=== PATIENT | female | born 1975 | race Caucasian/White ===

== ENCOUNTER 2020-06-11 20:04 | Emergency (ER) | payer OTHER ==
[2020-06-11] MEDS ORDERED: ONDANSETRON 4 MG/2 ML VIAL ONE (21:23)
[2020-06-11] MEDS ORDERED: NA CHLORIDE 0.9% 1,000 ML ONE (21:23)
[2020-06-11] MEDS ORDERED: FAMOTIDINE 20 MG/2 ML VIAL IV ONE (21:23)
[2020-06-11] MEDS ORDERED: CEFTRIAXONE/SWI 1gm 1 GM/10 ML SYR ONE (21:23)
[2020-06-11 21:44] LABS: Absolute Lymphocytes (CBC) 0.8 K/uL (0.7-4.9); Basophils % 0.3 % (0-1.3); Lymphocytes % 7.2 % (15.3-44.8); RBC Red Blood Cell Count 4.86 M/uL (3.86-4.86)
[2020-06-11 22:03] LABS: ALT/SGPT 18 U/L (12-78); AST/SGOT 8 U/L (15-37); Albumin 3.8 g/dL (3.4-5.0); Alkaline Phosphatase 37 U/L (45-117); BUN Blood Urea Nitrogen 14 mg/dL (7-18); Bicarbonate 26 mmol/L (21-32); Bilirubin Direct < 0.1 mg/dL (0-0.2); Bilirubin Total 0.3 mg/dL (0.2-1.0); Glucose Level 116 mg/dL (74-106); Lipase 110 U/L (73-393); Magnesium 2.2 mg/dL (1.8-2.4); NT PRO-BNP 37 pg/mL (<125); Potassium 3.3 mmol/L (3.5-5.1); Protein, Total 7.7 g/dL (6.4-8.2); Sodium Level 139 mmol/L (136-145); Troponin (Emerg Dept Use Only) < 0.02 ng/mL (0.0-0.045)
[2020-06-11 22:04] LABS: Blood Morphology Comment NOT SEEN (NOT SEEN); Platelet Estimate ADEQ; White Blood Cell Scan OK (OK)
--- NOTE | 2020-06-11 22:05 | RAD REPORT ---
EXAM DESCRIPTION: RAD - Chest Single View - 06/11/2020 9:21 pm CLINICAL HISTORY: DYSPNEA Chest pain. COMPARISON: No comparisons FINDINGS: Portable technique limits examination quality. The lungs are grossly clear. The heart is normal in size. No displaced fractures. IMPRESSION: No acute intrathoracic process suspected.
[2020-06-11 22:07] LABS: Urine Blood 2+ (NEG); Urine Glucose NEGATIVE (NEG); Urine Protein NEGATIVE (NEG); Urine Specific Gravity 1.015 (1.005-1.030)
[2020-06-11] MEDS ORDERED: LORazepam 2 MG/ML VIAL ONE ×2 (23:14→23:17)
[2020-06-11] MEDS ORDERED: ASPIRIN 81 MG CHEWABLE TABLET ONE (23:35)
[2020-06-11] MEDS ORDERED: AZITHROMYCIN 250 MG TAB ONE (23:36)
[2020-06-11] MEDS ORDERED: POTASSIUM 25 MEQ EFFERV TAB ONE (23:36)
[2020-06-11] MEDS ORDERED: dexAMETHasone 10 MG/ML VIAL ONE (23:36)
--- NOTE | 2020-06-11 23:57 | ER ---
Nurse's Notes [facility] Name: Christine Loving Age: 45 yrs Sex: Female : 1975 Arrival Date: 06/11/2020 Time: 20:06 Bed 15 Private MD: Diagnosis: Dyspnea;Acute upper respiratory infection, unspecified;Hypokalemia Presentation: 06/11 20:11 Chief complaint: Patient states: SOB, fever, chills, leg pain, and weakness since 1630 ll1 today. Fever 99.8 at home. No appetite. Coronavirus screen: Client denies travel out of the [place] in the last 14 days. fatigue, fever, nausea, Client presents with at least one sign or symptom that may indicate coronavirus-19. Standard/surgical mask placed on the client. Ebola Screen: Patient denies travel to an Ebola-affected area in the 21 days before illness onset. Initial Sepsis Screen: Does the patient meet any 2 criteria? HR > 90 bpm. No. Patient's initial sepsis screen is negative. Does the patient have a suspected source of infection? No. Patient's initial sepsis screen is negative. Risk Assessment: Do you want to hurt yourself or someone else? Patient reports no desire to harm self or others. Onset of symptoms was June 11, 2020. 20:11 Method Of Arrival: Ambulatory ll1 20:11 Acuity: JB 3 ll1 Historical: - Allergies: 20:13 No Known Allergies; ll1 - PMHx: 20:13 Hypertension; borderline diabetes; ll1 - PSHx: 20:13 None; ll1 - Immunization history:: Flu vaccine is not up to date. - Social history:: Smoking status: Patient reports the use of cigarette tobacco products, 2 cigs/day. - Family history:: not pertinent. Screenin:35 Abuse screen: Denies threats or abuse. Nutritional screening: No deficits noted. jb4 Tuberculosis screening: No symptoms or risk factors identified. Fall Risk None identified. Assessment: 20:35 General: Appears in no apparent distress. comfortable, Behavior is calm, cooperative. jb4 Pain: Denies pain. Neuro: Level of Consciousness is awake, alert, obeys commands, Oriented to person, place, time, situation. Cardiovascular: Patient's skin is warm and dry. Respiratory: Airway is patent Respiratory effort is even, unlabored, Respiratory pattern is regular, symmetrical, Breath sounds are clear bilaterally. GI: Abdomen is non-distended, obese, Patient currently denies abdominal pain, nausea. : No signs and/or symptoms were reported regarding the genitourinary system. EENT: No signs and/or symptoms were reported regarding the EENT system. Derm: Skin is intact, Skin is pink, warm \T\ dry. Musculoskeletal: Circulation, motion, and sensation intact. Range of motion: intact in all extremities. 21:30 Reassessment: Patient appears in no apparent distress at this time. Patient and/or jb4 family updated on plan of care and expected duration. Pain level reassessed. Patient is alert, oriented x 3, equal unlabored respirations, skin warm/dry/pink. 22:30 Reassessment: Patient appears in no apparent distress at this time. Patient and/or jb4 family updated on plan of care and expected duration. Pain level reassessed. Patient is alert, oriented x 3, equal unlabored respirations, skin warm/dry/pink. 23:09 Reassessment: pt appears anxious on the CT scanner stretcher, pt states she has not had sg a CT scan before and is claustrophobic and anxious about this. pt reassured, that the scanner is safe and the procedure is very fast. Primary nurse with pt in CT at this time, notified, and pt has been medicated as ordered. 06/12 00:00 Reassessment: Patient appears in no apparent distress at this time. Patient and/or jb4 family updated on plan of care and expected duration. Pain level reassessed. Patient is alert, oriented x 3, equal unlabored respirations, skin warm/dry/pink. Vital Signs: 06/11 20:11 BP 121 / 78; Pulse 100; Resp 18; Temp 98.9; Pulse Ox 100% ; Weight 82.55 kg; Height 5 ll1 ft. 3 in. (160.02 cm); Pain 0/10; 21:30 BP 136 / 103; Pulse 81; Resp 16; Pulse Ox 100% on R/A; jb4 22:30 BP 135 / 72; Pulse 84; Resp 16; Pulse Ox 100% on R/A; jb4 23:30 BP 136 / 75; Pulse 82; Resp 16; Pulse Ox 99% ; jb4 20:11 Body Mass Index 32.24 (82.55 kg, 160.02 cm) ll1 ED Course: 20:06 Patient arrived in ED. cl3 20:13 Triage completed. ll1 20:14 Arm band placed on Patient placed in an exam room, on a stretcher. ll1 20:25 Jean Chavez MD is Attending Physician. nicolette 20:35 Patient has correct armband on for positive identification. Call light in reach. Side jb4 rails up X 1. Pulse ox on. NIBP on. 21:04 Dayday Maria, RN is Primary Nurse. jb4 21:08 Urine collected: clean catch specimen, clear, debbie colored. jp3 21:10 Patient maintains SpO2 saturation greater than 95% on room air. jp3 21:10 EKG done, by ED staff, reviewed by Jean Chavez MD. jp3 21:12 X-ray(s) taken. jp3 21:14 First set of blood cultures drawn by me. Inserted saline lock: 20 gauge in left jp3 antecubital area, using aseptic technique. Blood collected. 21:16 Flu and/or RSV swab sent to lab. Pt swabbed for COVID-19. jp3 21:21 XRAY Chest (1 view) In Process Unspecified. EDMS 21:24 Initial lab(s) drawn, by me, sent to lab. Second set of blood cultures drawn by me. jp3 22:10 US Extremity Venous W Compression Patel In Process Unspecified. EDMS 23:32 CT Chest For PE Angio In Process Unspecified. EDMS 11 00:20 No provider procedures requiring assistance completed. IV discontinued, intact, jb4 bleeding controlled, No redness/swelling at site. Pressure dressing applied. Administered Medications: 06/11 21:30 Drug: NS 0.9% 1000 ml Route: IV; Rate: 1 bolus; Site: left antecubital; rr5 21:33 Drug: Pepcid 20 mg Route: IVP; Site: left antecubital; rr5 21:35 Drug: Rocephin 1 grams Route: IV; Rate: per protocol; Site: left antecubital; rr5 21:39 Not Given (Patient Refused): Zofran (Ondansetron) 4 mg IVP once; over 2 minutes jb4 22:52 Drug: Ativan 1 mg Route: IVP; Site: left antecubital; sg 23:26 Follow up: Response: No adverse reaction; Marked relief of symptoms jb4 23:32 Drug: Zithromax 500 mg Route: PO; jb4 06/12 00:00 Follow up: Response: No adverse reaction jb4 06/11 23:32 Drug: Potassium Effervescent Tablet 25 mEq Route: PO; jb4 06/12 00:00 Follow up: Response: No adverse reaction jb4 06/11 23:32 Drug: Aspirin 162 mg Route: PO; jb4 06/12 00:00 Follow up: Response: No adverse reaction jb4 06/11 23:32 Drug: Decadron - Dexamethasone 6 mg Route: IVP; Site: left antecubital; jb4 06/12 00:00 Follow up: Response: No adverse reaction jb4 Outcome: 06/11 23:56 Discharge ordered by MD. will 06/12 00:20 Discharged to home ambulatory. jb4 Condition: stable Discharge instructions given to patient, Instructed on discharge instructions, follow up and referral plans. medication usage, Demonstrated understanding of instructions, follow-up care, medications, Prescriptions given X 4. 00:23 Patient left the ED. jb4 Addendum: 06/14/2020 07:33 Addendum: COVID-19 Result: Negative result given to RN to notify pt. Attempted to s s contact pt regarding negative COVID-19 swab results. Left voice mail. Signatures: Dispatcher [employer] Yang Collazo, RN Jean Simmons MD MD cha Smirch, Shelby, RN RN Dayday Ochoa RN RN jb4 Mike Tabor jp3 Eulogio Huizar RN RN rr5 Otis Estevez3 Estrella Estevez RN RN ll1
--- NOTE | 2020-06-11 23:57 | EDPHYS ---
Physician Documentation [facility] Name: Christine Loving Age: 45 yrs Sex: Female : 1975 Arrival Date: 06/11/2020 Time: 20:06 Bed 15 Private MD: ED Physician Jean Chavez HPI: 06/11 21:41 This 45 yrs old Female presents to ER via Ambulatory with complaints of nicolette Nausea, Breathing Difficulty, Leg Pain. 21:41 The patient presents to the emergency department with nausea. nicolette Historical: - Allergies: 20:13 No Known Allergies; ll1 - PMHx: 20:13 Hypertension; borderline diabetes; ll1 - PSHx: 20:13 None; ll1 - Immunization history:: Flu vaccine is not up to date. - Social history:: Smoking status: Patient reports the use of cigarette tobacco products, 2 cigs/day. - Family history:: not pertinent. ROS: 21:42 Constitutional: Negative for fever, chills, and weight loss, Eyes: Negative for injury, nicolette pain, redness, and discharge, ENT: Negative for injury, pain, and discharge, Neck: Negative for injury, pain, and swelling, Cardiovascular: Negative for chest pain, palpitations, and edema, Abdomen/GI: Negative for abdominal pain, nausea, vomiting, diarrhea, and constipation, Back: Negative for injury and pain, : Negative for injury, bleeding, discharge, and swelling, Skin: Negative for injury, rash, and discoloration, Neuro: Negative for headache, weakness, numbness, tingling, and seizure, Psych: Negative for depression, anxiety, suicide ideation, homicidal ideation, and hallucinations, Allergy/Immunology: Negative for hives, rash, and allergies, Endocrine: Negative for neck swelling, polydipsia, polyuria, polyphagia, and marked weight changes, Hematologic/Lymphatic: Negative for swollen nodes, abnormal bleeding, and unusual bruising. 21:42 Respiratory: Positive for shortness of breath. 21:42 MS/extremity: Positive for pain. Exam: 21:42 Constitutional: This is a well developed, well nourished patient who is awake, alert, nicolette and in no acute distress. Head/Face: Normocephalic, atraumatic. Eyes: Pupils equal round and reactive to light, extra-ocular motions intact. Lids and lashes normal. Conjunctiva and sclera are non-icteric and not injected. Cornea within normal limits. Periorbital areas with no swelling, redness, or edema. ENT: Nares patent. No nasal discharge, no septal abnormalities noted. Tympanic membranes are normal and external auditory canals are clear. Oropharynx with no redness, swelling, or masses, exudates, or evidence of obstruction, uvula midline. Mucous membranes moist. Neck: Trachea midline, no thyromegaly or masses palpated, and no cervical lymphadenopathy. Supple, full range of motion without nuchal rigidity, or vertebral point tenderness. No Meningismus. Chest/axilla: Normal chest wall appearance and motion. Nontender with no deformity. No lesions are appreciated. Cardiovascular: Regular rate and rhythm with a normal S1 and S2. No gallops, murmurs, or rubs. Normal PMI, no JVD. No pulse deficits. Respiratory: Lungs have equal breath sounds bilaterally, clear to auscultation and percussion. No rales, rhonchi or wheezes noted. No increased work of breathing, no retractions or nasal flaring. Abdomen/GI: Soft, non-tender, with normal bowel sounds. No distension or tympany. No guarding or rebound. No evidence of tenderness throughout. Back: No spinal tenderness. No costovertebral tenderness. Full range of motion. Skin: Warm, dry with normal turgor. Normal color with no rashes, no lesions, and no evidence of cellulitis. Neuro: Awake and alert, GCS 15, oriented to person, place, time, and situation. Cranial nerves II-XII grossly intact. Motor strength 5/5 in all extremities. Sensory grossly intact. Cerebellar exam normal. Normal gait. Psych: Awake, alert, with orientation to person, place and time. Behavior, mood, and affect are within normal limits. 21:42 Musculoskeletal/extremity: ROM: intact in all extremities, full active range of motion, full passive range of motion, Circulation is intact in all extremities. Sensation intact. Compartment Syndrome exam of affected extremity: is normal. Joints: All joints appear normal with full range of motion. DVT Exam: no swelling, negative Homans' sign noted on exam, no appreciated bluish discoloration, no erythema, no increased warmth, pain, tenderness. 23:57 ECG was reviewed by the Attending Physician. [facility] Vital Signs: 20:11 BP 121 / 78; Pulse 100; Resp 18; Temp 98.9; Pulse Ox 100% ; Weight 82.55 kg; Height 5 ll1 ft. 3 in. (160.02 cm); Pain 0/10; 21:30 BP 136 / 103; Pulse 81; Resp 16; Pulse Ox 100% on R/A; jb4 22:30 BP 135 / 72; Pulse 84; Resp 16; Pulse Ox 100% on R/A; jb4 23:30 BP 136 / 75; Pulse 82; Resp 16; Pulse Ox 99% ; jb4 20:11 Body Mass Index 32.24 (82.55 kg, 160.02 cm) ll1 MDM: 20:25 Patient medically screened. nicolette 21:45 Antibiotic administration: Rocephin and Zithromax given, r. Differential diagnosis: nicolette Bronchitis pancreatitis, pneumonia, pulmonary edema, Pulmonary Embolism Unstable Angina. The patient's Wells Deep Vein Thrombosis Score was calculated as follows: Total Score: 0-2 Pts- Low Risk. The patient's pulmonary embolism risk score was calculated as follows: Total Score: 0-2 points. This patient was found to be at low risk for a pulmonary embolism by using the Well's assessment criteria. Immunization status:. Data reviewed: vital signs, nurses notes, lab test result(s), EKG, radiologic studies, CT scan, plain films. Data interpreted: radiation monitor: rate is 100 beats/min, rhythm is regular, Pulse oximetry: is not applicable for this patient encounter. on room air is 100 %. Test interpretation: by ED physician or midlevel provider: ECG, plain radiologic studies. Counseling: I had a detailed discussion with the patient and/or guardian regarding: the historical points, exam findings, and any diagnostic results supporting the discharge/admit diagnosis, lab results, radiology results, the need for outpatient follow up. 06/11 20:49 Order name: Basic Metabolic Panel; Complete Time: 22:59 [facility] 06/11 20:49 Order name: CBC with Diff; Complete Time: 22:59 [facility] 06/11 20:49 Order name: LFT's; Complete Time: 22:59 [facility] 06/11 20:49 Order name: Magnesium; Complete Time: 22:59 [facility] 06/11 20:49 Order name: NT PRO-BNP; Complete Time: 22:59 [facility] 06/11 20:49 Order name: Troponin (emerg Dept Use Only); Complete Time: 22:59 [facility] 06/11 20:49 Order name: Blood Culture Adult (2) [facility] 06/11 20:49 Order name: Lipase; Complete Time: 22:59 [facility] 06/11 20:49 Order name: Urine Culture [facility] 06/11 20:49 Order name: COVID-19 [facility] 06/11 20:49 Order name: Flu [facility] 06/11 20:49 Order name: Lactate; Complete Time: 22:59 [facility] 06/11 21:10 Order name: Urine Dipstick--Ancillary (enter results); Complete Time: 22:59 nm 06/11 21:10 Order name: Urine --Ancillary (enter results); Complete Time: 22:59 nm 06/11 20:49 Order name: XRAY Chest (1 view); Complete Time: 22:59 [facility] 06/11 20:49 Order name: EKG; Complete Time: 20:50 [facility] 06/11 20:49 Order name: Cardiac monitoring; Complete Time: 21:01 [facility] 06/11 20:49 Order name: EKG - Nurse/Tech; Complete Time: 21:01 [facility] 06/11 21:41 Order name: US Extremity Venous W Compression Patel [facility] 06/11 21:41 Order name: CT Chest For PE Angio [facility] 06/11 22:04 Order name: CBC Smear Scan; Complete Time: 22:59 [facility] 06/11 20:49 Order name: IV Saline Lock; Complete Time: 21:34 [facility] 06/11 20:49 Order name: Labs collected and sent; Complete Time: 21:34 [facility] 06/11 20:49 Order name: O2 Per Protocol; Complete Time: 21:01 [facility] 06/11 20:49 Order name: O2 Sat Monitoring; Complete Time: 21:01 [facility] 06/11 20:49 Order name: Urine Dipstick-Ancillary (obtain specimen); Complete Time: 21:01 [facility] EC:57 Rate is 91 beats/min. Rhythm is regular. QRS [place] is Normal. [place] interval is normal. QRS nicolette interval is normal. QT interval is prolonged at 464 msec. No Q waves. T waves are Normal. No ST changes noted. Clinical impression: NSR w/ Non-specific ST/T Changes and No evidence of ischemia. Interpreted by me. Reviewed by me. Administered Medications: 21:30 Drug: NS 0.9% 1000 ml Route: IV; Rate: 1 bolus; Site: left antecubital; rr5 21:33 Drug: Pepcid 20 mg Route: IVP; Site: left antecubital; rr5 21:35 Drug: Rocephin 1 grams Route: IV; Rate: per protocol; Site: left antecubital; rr5 21:39 Not Given (Patient Refused): Zofran (Ondansetron) 4 mg IVP once; over 2 minutes jb4 22:52 Drug: Ativan 1 mg Route: IVP; Site: left antecubital; sg 23:26 Follow up: Response: No adverse reaction; Marked relief of symptoms jb 23:32 Drug: Zithromax 500 mg Route: PO; jb4 06/12 00:00 Follow up: Response: No adverse reaction [facility] 06/11 23:32 Drug: Potassium Effervescent Tablet 25 mEq Route: PO; jb4 06/12 00:00 Follow up: Response: No adverse reaction [facility] 06/11 23:32 Drug: Aspirin 162 mg Route: PO; 4 06/12 00:00 Follow up: Response: No adverse reaction [facility] 06/11 23:32 Drug: Decadron - Dexamethasone 6 mg Route: IVP; Site: left antecubital; jb4 06/12 00:00 Follow up: Response: No adverse reaction [facility] Disposition: 06/11/20 23:56 Discharged to Home. Impression: Dyspnea, Acute upper respiratory infection, unspecified, Hypokalemia. - Condition is Stable. - Discharge Instructions: Potassium Content of Foods, Shortness of Breath, Upper Respiratory Infection, Adult, Cool Mist Vaporizer, Shortness of Breath, [id number], Cough, Adult, [id number], Aspirin and Your Heart, Hypokalemia, COVID-19. - Prescriptions for Pepcid 20 mg Oral Tablet - take 1 tablet by ORAL route every 12 hours for 10 days; 20 tablet. Medrol (Madhav) 4 mg Oral Tablets, Dose Pack - take 1 tablet by ORAL route as directed - follow package instructions; 1 packet. Albuterol Sulfate 90 mcg/actuation - inhale 1-2 puff by INHALATION route every 4-6 hours; 1 Inhaler. Zithromax 500 mg Oral Tablet - take 1 tablet by ORAL route once daily for 4 days; 4 tablet. - Medication Reconciliation Form, Thank You Letter, Antibiotic Education, Prescription Opioid Use form. - Follow up: Private Physician; When: 2 - 3 days; Reason: Recheck today's complaints, Continuance of care, Re-evaluation by your physician. - Problem is new. - Symptoms have improved. Signatures: Dispatcher [employer] EDMS Yang Holley RN Jean Simmons MD MD cha Bryson, James, RN RN jb4 Eulogio Huizar RN RN rr5 Estrella Estevez RN RN ll1 Corrections: (The following items were deleted from the chart) 00:23 06/11 23:56 06/11/2020 23:56 Discharged to Home. Impression: Dyspnea; Acute upper jb4 respiratory infection, unspecified; Hypokalemia. Condition is Stable. Discharge Instructions: Potassium Content of Foods, Shortness of Breath, Upper Respiratory Infection, Adult, Cool Mist Vaporizer, Shortness of Breath, [id number], Cough, Adult, [id number]-[id number], Hypokalemia, COVID-19, Aspirin and Your Heart. Prescriptions for Pepcid 20 mg Oral Tablet - take 1 tablet by ORAL route every 12 hours for 10 days; 20 tablet, Medrol (Madhav) 4 mg Oral Tablets, Dose Pack - take 1 tablet by ORAL route as directed - follow package instructions; 1 packet, Albuterol Sulfate 90 mcg/actuation - inhale 1-2 puff by INHALATION route every 4-6 hours; 1 Inhaler, Zithromax 500 mg Oral Tablet - take 1 tablet by ORAL route once daily for 4 days; 4 tablet. and Forms are Medication Reconciliation Form, Thank You Letter, Antibiotic Education, Prescription Opioid Use. Follow up: Private Physician; When: 2 - 3 days; Reason: Recheck today's complaints, Continuance of care, Re-evaluation by your physician. Problem is new. Symptoms have improved. nicolette
[2020-06-12 09:04] VITALS: TEMP 98.9; O2SAT 100
[2020-06-12 09:07] VITALS: BP 135/72
--- NOTE | 2020-06-12 10:27 | RAD REPORT ---
EXAM DESCRIPTION: CT - Chest For Pe Angio - 06/12/2020 6:57 am CLINICAL HISTORY: Shortness of breath. COMPARISON: None. TECHNIQUE: CT angiogram of the chest with IV contrast. 3-D MIP images were obtained in coronal and s agittal reconstructions. This exam was performed according to our departmental dose-optimization prog alex, which includes automated exposure control, adjustment of the mA and/or kV according to patient s ize and/or use of iterative reconstruction technique. FINDINGS: No filling defects are seen in the pulmonary trunk or the left and right main pulmonary ar valerie. There is limited evaluation of the segmental branches due to motion artifact. The thyroid gland is normal. No mediastinal or hilar adenopathy. The heart size is normal without per icardial effusion. The thoracic aorta is normal caliber. No consolidation, pleural effusion, or pneum othorax is identified. The visualized upper abdomen demonstrates no acute findings. No acute osseous findings are seen. IMPRESSION: 1. No acute pulmonary embolism. 2. Clear lungs. Electronically signed by: Maxx Foster MD 06/11/2020 11:45 PM [employer] Due to temporary technical issues with the PACS/Fluency reporting system, reports are being signed by the in house radiologist without review as a courtesy to ensure prompt reporting. The interpreting r adiologist is fully responsible for the content of the report.
--- NOTE | 2020-06-12 10:40 | RAD REPORT ---
EXAM DESCRIPTION: US - Extrem Venous W Compress Patel - 06/11/2020 10:10 pm CLINICAL HISTORY: Pain;Swelling, both legs Preliminary findings provided at the time of the study. COMPARISON: None. TECHNIQUE: Real-time sonographic evaluation of the bilateral lower extremity common femoral, superfi cial femoral, popliteal and posterior tibial veins was performed. FINDINGS: Normal compressibility, flow augmentation, phasic flow and spontaneous flow are identified in the left and right lower extremity common femoral, superficial femoral, popliteal and posterior t ibial veins. No intraluminal filling defects seen. IMPRESSION: No DVT in either lower extremity.
--- NOTE | 2020-06-13 06:08 | EKG ---
Test Date: 2020-06-11 Test Time: 20:55:28 Personal Financial Advisor: DEVIN MEASUREMENT RESULTS: Intervals: Rate: 91 IL: 166 QRSD: 88 QT: 378 QTc: 464 Gratz: P: 46 IL: 166 QRS: -3 T: 12 INTERPRETIVE STATEMENTS: Normal sinus rhythm Prolonged QT Abnormal ECG Compared to ECG 04/24/2006 12:23:19 Prolonged QT interval now present T-wave abnormality no longer present Electronically Signed On 06-13-20 06:03:26 SPANISH SPEAKING NANNY by Amador Montgomery
== END 2020-06-12 00:23 | disposition home or self-care (01) ==
LOC: ER 20:04
DX: J06.9 Acute upper respiratory infection, unspecified (principal); E87.6 Hypokalemia; Z20.828 Contact with and (suspected) exposure to other viral communicable diseases; I10 Essential (primary) hypertension; F17.210 Nicotine dependence, cigarettes, uncomplicated
CPT/HCPCS: 93005; 87040 ×2; 87088; 85025; 87086; 80048; 36415; 83735; 81025; 80076; 83605; 81003; 84484; 83690; 83880; 87804 ×2; 71275; 71045; 93970; 96375; 96374; 99285; U0002; Q9967; J1100; J0696; J7030; J2405

== ENCOUNTER 2021-12-19 16:07 | Emergency (ER) | payer OTHER ==
--- OUTSIDE RECORDS SUMMARY | 2021-12-19 16:09 | XMS REPORT | Continuity of Care Document ---
:1975 Author Organization [facility] t Address [address] [place] [address] Care Team Providers Name Role Phone Sophie Shea Primary Care Physician Elia Perdomo MD Attending Clinician Payers Payer Name Policy Type Policy Number Effective Date Expiration Date S ource Problems Condition Condition Condition Status Onset Resolution Last Treating Co mments Source Name Details Category Date Date Treatment Clinician Date Perimenopa Perimenopa Disease Active U nivers usal usal 4-08 ity of symptom symptom 00:00: [address] Menorrhagi Menorrhagi Disease Active U nivers a with a with 4-08 ity of irregular irregular 00:00: [place] s cycle cycle 00 [address] Enlarged Enlarged Disease Active Unive rs uterus uterus 7-18 ity of 00:00: [place] [facility] Generalize Generalize Disease Active U nivers d anxiety d anxiety 7-18 ity of disorder disorder 00:00: [facility] Depression Depression Disease Active U nivers 7-18 ity of 00:00: [place] [facility] Elevated Elevated Disease Active Unive rs cholestero cholestero 7-18 it y of l l 00:00: [address] Type 2 Type 2 Disease Active Overview: Univer s diabetes diabetes 7-18 Formattin ity of mellitus mellitus 00:00: g of this [place] as without without 00 note Medical complicati complicati might be Branch ons ons different from the original. ICD10 Diagnosis Term Composition [employer] Intramural Intramural Disease Active Overview : Univers leiomyoma leiomyoma -18 Formattin i ty of of uterus of uterus 00:00: [place] 00 note Medical might be Branch different from the original. 0- IMPRESSIO N:Enlarge d uterus with probable fibroid; adenomyos is could also bein the different ial, but less likely. Encounter Encounter Disease Active Overview: Univers for for 18 Formattin ity of routine routine 00:00: g of this [place] gynecologi gynecologi 00 note Me dical selene selene might be Branch examinatio examinatio different n n from the original. ICD10 Diagnosis Term Composition [employer] Essential Essential Disease Active Overview: Univers hypertensi hypertensi -18 Formattin ity of on on 00:00: g of this [place] 00 note Medical might be Branch different from the original. ICD10 Diagnosis Term Composition [employer] IBS IBS Disease Active Univers (irritable (irritable 18 it y of bowel bowel 00:00: [place] syndrome) syndrome) 00 [facility] Allergies, Adverse Reactions, Alerts This patient has no known allergies or adverse reactions. Social History Social Habit Start Date Stop Date Quantity Comments Source Exposure to 2021-12-02 2021-12-12 Not sure [facility]-CoV-2 00:00:00 13:57:00 [facility] (event) Branch Alcohol intake 2021-12-03 2021-12-03 Current University of 00:00:00 00:00:00 non-drinker of [facility] alcohol (finding) Branch Tobacco use and 2014-02-09 2014-02-09 Never used Universit y of exposure 00:00:00 00:00:00 [facility] Tobacco Comment 2014-02-09 2014-02-09 1 pk / 1.5 wk Univer sity of 00:00:00 00:00:00 [facility] History of 1994-02-09 2008-02-10 Cigarette Smoker Universi ty of tobacco use 00:00:00 00:00:00 [facility] Sex Ass[birth year] At [birth year] Universit y of 00:00:00 00:00:00 [facility] Smoking Status Start Date Stop Date Source Former smoker 2014-02-09 00:00:00 2014-02-09 00:00:00 Universi ty of [facility] Medications Ordered Filled Start Stop Current Ordering Indication Dosage Frequency Signature Comments Components Source Medication Medication Date Date Medication? Clinician (SIG) Name Name LORazepam 2- No [id number] 1mg Take 1 Univers (ATIVAN) 1 5-11 05-12 [id number] tablet by i ty of mg tablet 00:00: 04:59 mouth once [place] 00 :00 now for 1 Medical dose. Branch rosuvastati Yes Take by Un ange n calcium 4-08 mouth. ity of (ROSUVASTAT 13:34: [place] IN ORAL) 23 Medical Branch verapamil Yes 240mg Take 240 Uni vers (CALAN SR) 4-08 mg by ity of 240 mg SR 13:29: mouth 2 [place] tablet 00 (two) Medical times Branch daily. dicyclomine Yes 20mg Take 20 mg Univers (BENTYL) 20 4-08 by mouth ity of mg tablet 13:29: [place] needed. [place] 00 Medical Branch topiramate Yes 25mg Take 25 mg U nivers (TOPAMAX) 4-08 by mouth ity of 25 mg 13:29: at [place] tablet 00 bedtime. Medical Branch metFORMIN Yes 500mg Take 500 Uni vers (GLUCOPHAGE 4-08 mg by ity of ) 500 mg 13:29: mouth [place] tablet 00 daily. Medical Branch triamterene Yes 1{tbl} Take 1 Tab Univers -hydrochlor 4-08 by mouth ity of othiazid 13:29: daily. [place] (MAXZIDE-25 00 Medical ) 37.5-25 Branch mg tablet simvastatin Yes 20mg Take 20 mg Univers (ZOCOR) 20 4-08 by mouth ity o f mg tablet 13:29: at [place] 00 bedtime. Medical Branch cloniDINE Yes .1mg Take 0.1 Univ ers (CATAPRES) 4-08 mg by ity of 0.1 mg 13:29: mouth at [place] tablet 00 bedtime. Medical Branch miSOPROStoL Yes [id number] 200ug Take 1 Univers 200 mcg 4-08 tablet by ity of tablet 00:00: mouth [place] [id number] SEE-INSTRU Medical CTIONS. Branch Take one tab the night before and one tab the morning of procedure fenofibrate Yes 48mg Take 48 mg Univers 48 mg 1-16 by mouth ity of tablet 00:00: daily. [address] Immunizations Ordered Filled Immunization Date Status Comments [facility] e Immunization Name Name Td 2007-02-09 Completed [facility] 00:00:00 [facility] PPD (TB) 1994-02-09 Completed [facility] 00:00:00 [facility] Procedures This patient has no known procedures. Encounters Start End Encounter Admission Attending Care Care Encounter Source Date/Time Date/Time Type Type Clinicians Facility Department ID 2021-12-03 2021-12-03 [facility] Mia Perdomo [facility] [id number] [facility] 13:15:00 16:40:07 ne Visit Elia RUSH [id number] ity of [place] [id number] [place] cle[place] PROFESSIO [phone] Sc dical [facility] 134 Branch BUILDING Results This patient has no known results.
[2021-12-19 18:03] LABS: Absolute Lymphocytes (CBC) 1.9 K/uL (0.7-4.9); Hematocrit 36.2 % (36.0-45.0); Lymphocytes % 21.5 % (15.3-44.8); MPV 8.7 fL (7.6-11.3); RBC Red Blood Cell Count 4.44 M/uL (3.86-4.86)
[2021-12-19 18:16] LABS: Albumin 3.8 g/dL (3.4-5.0); Bilirubin Total 0.3 mg/dL (0.2-1.0); Potassium 3.2 mmol/L (3.5-5.1); Protein, Total 7.3 g/dL (6.4-8.2); Troponin High Sensitivity 5.5 pg/mL (<58.9)
--- NOTE | 2021-12-19 19:46 | ER ---
Nurse's Notes [facility] Name: Christine Loving Age: 46 yrs Sex: Female : 1975 Arrival Date: 12/19/2021 Time: 16:15 Bed 23 Private MD: Diagnosis: Hypertensive heart disease without heart failure;Dizziness and giddiness;Syncope Near;Hypokalemia Presentation: 12/19 17:18 Chief complaint: Patient states: started feeling like her BP was high, felt like she iw was going to pass out , felt bad. Coronavirus screen: At this time, the client does not indicate any symptoms associated with coronavirus-19. Risk Assessment: Do you want to hurt yourself or someone else? Patient reports no desire to harm self or others. Onset of symptoms was December 19, 2021. 17:18 Method Of Arrival: Ambulatory iw 17:18 Acuity: JB 3 iw Historical: - Allergies: 17:19 No Known Allergies; iw - PMHx: 17:19 Borderline Diabetes; Hypertension; iw Assessment: 19:55 General: Appears in no apparent distress. Behavior is calm, cooperative. Neuro: Level bb of Consciousness is awake, alert, obeys commands, Oriented to person, place, time, situation. Cardiovascular: Capillary refill < 3 seconds Patient's skin is warm and dry. Respiratory: Airway is patent Respiratory effort is even, unlabored, Respiratory pattern is regular. GI: No signs and/or symptoms were reported involving the gastrointestinal system. Derm: Skin is pink, warm \T\ dry. Musculoskeletal: Circulation, motion, and sensation intact. pt seen by this RN at discharge pt does not want any further treatment and wants to go home. Pt verbalized understanding of and agrees to plan of care discharge instructions given pt ambulated with steady gait to exit. Vital Signs: 17:19 BP 147 / 87; Pulse 84; Resp 16; Temp 98.2; Pulse Ox 99% on R/A; iw 19:32 BP 143 / 79; Pulse 76; Resp 17; Pulse Ox 100% on R/A; Weight 81.65 kg; Height 5 ft. 3 kd3 in. (160.02 cm); 19:32 Body Mass Index 31.89 (81.65 kg, 160.02 cm) kd3 ED Course: 16:15 Patient arrived in ED. ja2 17:18 Triage completed. iw 17:19 Arm band placed on. iw 17:43 eJan Aldana PA is PHCP. cp 17:43 Camilo Bryan MD is Attending Physician. cp 17:55 Initial lab(s) drawn, by me, sent to lab. Inserted saline lock: 22 gauge in left iw antecubital area, using aseptic technique. 19:34 Elaine Chen, RN is Primary Nurse. kd3 19:57 No provider procedures requiring assistance completed. IV discontinued, intact, bb bleeding controlled, No redness/swelling at site. Pressure dressing applied. Administered Medications: No medications were administered Outcome: 19:45 Discharge ordered by MD. cp 19:58 Discharged to home ambulatory. bb 19:58 Condition: stable 19:58 Discharge instructions given to patient, Instructed on discharge instructions, follow up and referral plans. medication usage, Demonstrated understanding of instructions, follow-up care, medications, Prescriptions given X 2. 19:58 Patient left the ED. bb Signatures: Brittney Matta RN RN bb Raeann Serrano RN RN Jean Aldana PA PA Emelyn Freed [facility] Elaine Chen, RN RN kd3
--- NOTE | 2021-12-19 19:46 | EDPHYS ---
Physician Documentation [facility] Name: Christine Loving Age: 46 yrs Sex: Female : 1975 Arrival Date: 12/19/2021 Time: 16:15 Bed 23 Private MD: ED Physician Camilo Bryan HPI: 12/19 18:30 This 46 yrs old Female presents to ER via Ambulatory with complaints of High Blood cp Pressure, Dizziness. 18:30 The patient has elevated blood pressure and discovered this at home, with a home cp device. Onset: The symptoms/episode began/occurred today. Associated signs and symptoms: Pertinent positives: dizziness, near syncope, Pertinent negatives: chest pain, dyspnea, headache, vomiting, weakness. Severity of symptoms: in the emergency department the blood pressure is improved, 147 mm Hg. Historical: - Allergies: 17:19 No Known Allergies; iw - PMHx: 17:19 Borderline Diabetes; Hypertension; iw ROS: 18:35 Constitutional: Negative for body aches, chills, fever, poor PO intake. cp 18:35 Eyes: Negative for injury, pain, redness, and discharge. cp 18:35 ENT: Negative for drainage from ear(s), ear pain, sore throat, difficulty swallowing, difficulty handling secretions. 18:35 Neck: Negative for pain with movement, pain at rest. 18:35 Cardiovascular: Negative for chest pain, edema, palpitations. 18:35 Respiratory: Negative for cough, shortness of breath, wheezing. 18:35 Abdomen/GI: Negative for abdominal pain, vomiting, diarrhea, constipation. 18:35 Back: Negative for pain at rest, pain with movement. 18:35 : Negative for urinary symptoms. 18:35 Neuro: Positive for dizziness, headache, near syncope, Negative for altered mental status, numbness, tingling, weakness. 18:35 All other systems are negative. Exam: 18:40 Constitutional: The patient appears in no acute distress, alert, awake, cp non-diaphoretic, non-toxic, well developed, well nourished. 18:40 Head/Face: Normocephalic, atraumatic. cp 18:40 Eyes: Periorbital structures: appear normal, Pupils: equal, round, and reactive to light and accomodation, Extraocular movements: intact throughout, Conjunctiva: normal, no exudate, no injection, Sclera: no appreciated abnormality, Lids and lashes: appear normal, bilaterally. 18:40 ENT: External ear(s): are unremarkable, Ear canal(s): are normal, TM's: dullness, bilaterally, Nose: is normal, Mouth: Lips: moist, Oral mucosa: pink and intact, moist, Posterior pharynx: Airway: no evidence of obstruction, patent. 18:40 Neck: ROM/movement: is normal, is supple, without pain, no range of motions limitations, no nuchal rigidity. 18:40 Chest/axilla: Inspection: normal. 18:40 Cardiovascular: Rate: normal, Rhythm: regular, Edema: is not appreciated, JVD: is not appreciated. 18:40 Respiratory: the patient does not display signs of respiratory distress, Respirations: normal, no use of accessory muscles, no retractions, labored breathing, is not present, Breath sounds: are clear throughout, no decreased breath sounds, no stridor, no wheezing. 18:40 Abdomen/GI: Inspection: abdomen appears normal, Bowel sounds: active, all quadrants, Palpation: abdomen is soft and non-tender, in all quadrants. 18:40 Back: pain, is absent, ROM is normal. 18:40 Skin: cellulitis, is not appreciated, no rash present. 18:40 Neuro: Orientation: to person, place \T\ time. Mentation: is normal, Cerebellar function: is grossly normal, Motor: moves all fours, strength is normal, Sensation: is normal. Vital Signs: 17:19 BP 147 / 87; Pulse 84; Resp 16; Temp 98.2; Pulse Ox 99% on R/A; iw 19:32 BP 143 / 79; Pulse 76; Resp 17; Pulse Ox 100% on R/A; Weight 81.65 kg; Height 5 ft. 3 kd3 in. (160.02 cm); 19:32 Body Mass Index 31.89 (81.65 kg, 160.02 cm) kd3 MDM: 18:00 Differential diagnosis: hypertensive crisis, Malignant HTN, CVA, intracerebral cp hemorrhage. 19:38 Patient medically screened. cp 19:39 Refusal of service: The patient/guardian displays adequate decision making capability cp and despite a detailed discussion of alternatives, benefits, risks, and consequences refuses: CT Scan, any further testing at this time. Patient requesting discharge to home and will continue to monitor symptoms. 19:45 Data reviewed: vital signs, nurses notes, lab test result(s), EKG. 19:45 Test interpretation: by ED physician or midlevel provider: ECG. 12/19 17:30 Order name: CBC with Diff; Complete Time: 18:26 rn 12/19 19:31 Interpretation: Normal except: MCV 81.7; MCH 28.1. 12/19 17:30 Order name: CMP; Complete Time: 18:26 rn 12/19 19:31 Interpretation: Normal except: K 3.2. cp 12/19 17:30 Order name: Troponin High Sensitivity; Complete Time: 18:26 rn 12/19 17:30 Order name: BNP; Complete Time: 18:26 rn 12/19 17:30 Order name: IV Start rn 12/19 17:30 Order name: EKG; Complete Time: 17:31 rn 12/19 17:30 Order name: EKG - Nurse/Tech rn 12/19 17:30 Order name: Cardiac monitoring 12/19 18:29 Order name: Orthostatics 12/19 18:29 Order name: Urine Dipstick-Ancillary (obtain specimen) 12/19 18:29 Order name: Urine Test (obtain specimen) cp Administered Medications: No medications were administered Disposition Summary: 12/19/21 19:45 Discharge Ordered Location: Home cp Problem: new cp Symptoms: are unchanged cp Condition: Stable cp Diagnosis - Hypertensive heart disease without heart failure cp - Dizziness and giddiness cp - Syncope Near cp - Hypokalemia cp Followup: cp - With: Private Physician - When: 1 - 2 days - Reason: Recheck today's complaints Discharge Instructions: - Discharge Summary Sheet cp - Potassium Content of Foods cp - Dizziness cp - Hypertension, Adult cp - Near-Syncope cp - Aspirin and Your Heart cp - Hypokalemia cp - Form - Blood Pressure Record Sheet cp - How to Take Your Blood Pressure cp Forms: - Medication Reconciliation Form cp - Thank You Letter cp - Antibiotic Education cp - Prescription Opioid Use cp Prescriptions: - Meclizine 25 mg Oral Tablet - take 1 tablet by ORAL route every 8 hours As needed; 30 tablet; Refills: 0, cp Product Selection Permitted - Potassium Chloride 10 mEq Oral capsule, extended release - take 1 tablet by ORAL route once daily for 5 days; 5 tablet; Refills: 0, cp Product Selection Permitted Addendum: 12/21/2021 07:12 Co-signature as Attending Physician, Camilo Bryan MD. r n Signatures: Dispatcher [employer] Raeann Koroma, RN Camilo Brown MD MD rn Jean Aldana PA PA cp
[2021-12-19 20:04] VITALS: TEMP 98.2
[2021-12-19 20:09] VITALS: BP 143/79; O2SAT 100
== END 2021-12-19 19:58 | disposition home or self-care (01) ==
LOC: ER 16:07
DX: I11.9 Hypertensive heart disease without heart failure (principal); E87.6 Hypokalemia; R55 Syncope and collapse; I10 Essential (primary) hypertension; R73.03 Prediabetes
CPT/HCPCS: 36415; 80053; 83880; 84484; 85025; 99283